=== PATIENT | female | born 2000 | race African-American/Black ===

== ENCOUNTER 2019-12-01 05:18 | Emergency (ER) | payer MEDICAID ==
[~2019-12-01] VITALS: Ht 172.7 cm; Wt 113.4 kg
[2019-12-01 05:46] LABS: ABSOLUTE BASOPHILS 0.1 thou/uL (0.0-0.2); ABSOLUTE EOSINOPHILS 0.2 thou/uL (0.0-0.7); ABSOLUTE LYMPHOCYTES 3.6 thou/uL (0.8-5.3); ABSOLUTE MONOCYTES 0.9 thou/uL (0.0-1.2); ABSOLUTE NEUTROPHILS 5.6 thou/uL (1.6-8.1); BASOPHILS 0.8 %; EOSINOPHILS 2.3 %; HEMATOCRIT 45.5 % (37.0-47.0); HEMOGLOBIN 15.5 gm/dL (12.0-15.0); LYMPHOCYTES 34.4 %; MCHC 34.1 g/dL (28.0-37.0); MONOCYTES 8.7 %; MPV 6.6 fl. (7.2-11.1); NUCLEATED RBCS 0 /100WBC; PLATELET COUNT* 491 thou/uL (150-400); POLYS 53.8 %; RBC 5.55 mil/uL (4.20-5.00); RDW-CV 14.7 % (10.5-14.5); WBC 10.4 thou/uL (4.0-11.0)
[2019-12-01 05:58] LABS: CALCIUM 9.6 mg/dL (8.5-10.1); CREATININE 1.1 mg/dL (0.6-1.3); POTASSIUM 3.1 mmol/L (3.5-5.1)
[2019-12-01] MEDS ORDERED: NORVASC 2.5 MG2.5 M1 PO (06:01)
[2019-12-01] MEDS ORDERED: HYDROCHLOROTHIA25 M2 PO (06:01)
[2019-12-01 06:03] LABS: ALBUMIN 4.4 g/dL (3.4-5.0); TOTAL BILIRUBIN 0.8 mg/dL (<0.1-1.0); TOTAL PROTEIN 9.5 g/dL (6.4-8.2)
[2019-12-01 07:33] LABS: ACETAMINOPHEN < 2 ug/mL (10-30); ALCOHOL < 10 mg/dL (<10); SALICYLATE 3.7 mg/dL (2.8-20.0)
--- NOTE | 2019-12-01 11:20 | EKG ---
[place] [address] ELECTROCARDIOGRAM REPORT Name: SEVEN RAMIREZ Room: [facility]#: [id number] Admission: 12/01/19 Attend Phys: Discharge: Date of : [birth year] Date of Service: 12/01/19 0525 Report #: [id number] THIS REPORT FOR: //name// [facility] ED Test Date: 2019-12-01 Test Time: 05:25:09 Pat Name: SEVEN RENAEERS Department: Room: Gender: [place]: [place] : 2000 Requested By: Omaira Preciado Order Number: [id number] MD: Yasmany Nieto Measurements Intervals [place] Rate: 94 P: 0 MD: 137 QRS: 36 QRSD: 84 T: 30 QT: 344 QTc: 431 Interpretive Statements Sinus rhythm with short pr interval Borderline T abnormalities, inferior leads Baseline wander in lead(s) II,III,aVF No previous ECG available for comparison Electronically Signed On 12-01-2019 11:20:41 CDT by Yasmany Nieto [email or web address] <ELECTRONICALLY SIGNED> By: Yasmany Nieto MD, [facility] 12/01/19 1120 0525 0525 Yasmany Nieto MD, [facility] /EPI
[2019-12-01 14:00] VITALS: BP 140/87
== END 2019-12-01 14:05 | disposition home or self-care (01) ==
LOC: M.ERS 05:18
PROVIDERS: Personal Emergency Response Attendant
DX: R07.89 Other chest pain (principal); R45.851 Suicidal ideations; I16.0 Hypertensive urgency; I10 Essential (primary) hypertension

== ENCOUNTER 2020-03-23 05:20 | Emergency (ER) | payer MEDICAID ==
[~2020-03-23] VITALS: Ht 172.7 cm; Wt 133.8 kg
--- NOTE | ~2020-03-23 | EMS ---
[facility] [address] [place] [address] EMS Patient Care Report Name: SEVEN RAMIREZ Room: [facility]#: [id number] Admission: 03/23/20 Attend Phys: Discharge: 03/23/20 Date of : [birth year] Report #: [id number] THIS REPORT FOR: //name// Report Transmitted: 03/29/2020 08:31 EMS Care Summary [facility] Incident [id number] @ 03/23/2020 04:46 Incident Location [address] [place] [address] Patient SEVEN RAMIREZ Female, 20 Years 2000 Patient Address [address] [place] [address] Patient History Schizoaffective Disorder,Anxiety disorder, unspecified,Obesity, unspecified,Tobacco use, Patient Allergies No known allergies, Chief Complaint Suicidal Ideation Disposition Transported No Lights/[place] Reason Psychiatric Problem/Abnormal Behavior/Suicide Attempt Transported To [facility] Narrative RESPONDED TO 911 CALL FOR STAGE ON SUICIDAL. STAGED. PER [employer] SCENE SECURE. ENTERED. MET WITH 20 YEAR OLD FEMALE PATIENT SEVEN RAMIREZ WHO WAS PINK AND DRY, AMBULATORY, FEARFUL. SEVEN COMPLAINED OF SUICIDAL IDEATION AND HEARING VOICES. SEVEN ENTERED AMBULANCE. IN AMBULANCE GATHERED VITAL SIGNS. SEVEN STATED SHE WOKE UP TO HEARING VOICES, STATED THEY MADE HER WANT TO STAB HERSELF. SEVEN [facility] [address] [place] [address] EMS Patient Care Report Name: SEVEN RAMIREZ Room: [facility]#: [id number] Admission: 03/23/20 Attend Phys: Discharge: 03/23/20 Date of : [birth year] Report #: [id number] STATED SHE HAD MADE PLANS TO STAB HERSELF. KRISTA REQUESTED TRANSPORT TO [facility]. SCOTT ORDERED NON EMERGENT TRANSPORT TO [facility]. MONITORED SEVEN FOR DURATION OF TRANSPORT. CALLED RADIO REPORT. ARRIVED. WHEELED SEVEN TO RN STATION, DIRECTED TO ROOM. GAVE REPORT, TRANSFERRED CARE. Initial Vitals @05:00P: 111,R: 20,BP: 158/P, @05:00GCS: 15, @04:57 Assessments @04:57MENTAL:SKIN:HEENT:LUNG SOUNDS:ABDOMEN:PELVIS//GI:EXTREMITIES:PULSE:NEURO: Impression Mental disorder Timeline 04:44,Call Received 04:44,Dispatch Notified 04:44,Psap Call 04:46,Dispatched 04:46,En Route 04:51,On Scene 04:57,At Patient 04:57,BP: / M,PULSE: ,RR: R,SPO2: Ox,ETCO2: ,BG: ,PAIN: ,GCS: , 05:00,BP: 158/P M,PULSE: 111,RR: 20 R,SPO2: Ox,ETCO2: ,BG: ,PAIN: ,GCS: , 05:00,BP: / M,PULSE: ,RR: R,SPO2: Ox,ETCO2: ,BG: ,PAIN: ,GCS: 15, 05:04,Depart Scene 05:18,At Destination 05:35,Call Closed Disclaimer v1.1 Copyright 2020 [employer] This EMS Care Summary contains data elements from the applicable legal record (which may be displayed differently). It is designed to provide pertinent information for the following purposes: continuity of care, clinical quality, and state data reporting. The complete legal record is available to ED staff and administrators of the receiving hospital in [employer] Patient Tracker. All data is provided "as is."
[~2020-03-23 05:20] MED LIST: HYDROCHLOROTHIA25 M2 PO; NORVASC 2.5 MG2.5 M1 PO
[2020-03-23 05:44] LABS: HEMATOCRIT 41.4 % (37.0-47.0); HEMOGLOBIN 14.1 gm/dL (12.0-15.0); MCH 27.5 pg (26.0-34.0); MCHC 34.1 g/dL (28.0-37.0); MCV 80.6 fL (80.0-100.0); MPV 6.5 fl. (7.2-11.1); RBC 5.13 mil/uL (4.20-5.00); RDW-CV 14.8 % (10.5-14.5); WBC 11.7 thou/uL (4.0-11.0)
[2020-03-23 05:57] LABS: CREATININE 0.9 mg/dL (0.6-1.3); POTASSIUM 3.5 mmol/L (3.5-5.1)
[2020-03-23 06:01] LABS: ALBUMIN 3.4 g/dL (3.4-5.0); TOTAL BILIRUBIN 0.3 mg/dL (<0.1-1.0); TOTAL PROTEIN 7.3 g/dL (6.4-8.2)
[2020-03-23 06:10] LABS: ACETAMINOPHEN < 2 ug/mL (10-30); ALCOHOL < 10 mg/dL (<10)
[2020-03-23 08:50] LABS: URINE BILIRUBIN NEGATIVE (Negative); URINE BLOOD NEGATIVE (Negative); URINE CLARITY SL CLOUDY; URINE COLOR YELLOW; URINE GLUCOSE-RANDOM NEGATIVE (Negative); URINE KETONES NEGATIVE (Negative); URINE LEUKOCYTES NEGATIVE (Negative); URINE NITRITE NEGATIVE (Negative); URINE PROTEIN 1+ (Negative); URINE SPECIFIC GRAVITY 1.025 (1.005-1.030); URINE UROBILINOGEN 0.2 E.U./dl (0.2-1.0)
[2020-03-23 08:55] LABS: SQUAMOUS >10 Many /LPF (0-3)
[2020-03-23 08:56] LABS: BACTERIA >30 Many /HPF (None Seen); CASTS None Seen /LPF (None Seen); CRYSTALS None Seen /LPF (None Seen); MUCUS 0-3 Light strn/LPF (None Seen); URINE RBC 0-2 Rare /HPF (0-2); URINE WBC 0-5 Rare /HPF (0-5)
[2020-03-23 08:58] LABS: AMP/METHAMP Negative (Negative); BARBITURATES Negative (Negative); BENZODIAZEPINES Negative (Negative); COCAINE Negative (Negative); METHADONE Negative (Negative); OPIATES Negative (Negative); PCP Negative (Negative); THC Negative (Negative)
[2020-03-23 10:08] VITALS: BP 115/48
== END 2020-03-23 10:10 | disposition still patient (30) ==
LOC: M.ERS 05:20
PROVIDERS: Personal Emergency Response Attendant
DX: R45.851 Suicidal ideations (principal); F20.9 Schizophrenia, unspecified; F41.9 Anxiety disorder, unspecified; I10 Essential (primary) hypertension; F31.9 Bipolar disorder, unspecified

== ENCOUNTER 2020-08-05 02:55 | Emergency (ER) | payer MEDICAID ==
[~2020-08-05] VITALS: Ht 172.7 cm; Wt 136.1 kg
[2020-08-05] MEDS ORDERED: MYLANTA COAT-C355 ML SW&SWALLOW (03:55)
[2020-08-05] MEDS ORDERED: ACETAMINOPHEN-1 EAC2 PO (03:55)
[2020-08-05 04:08] VITALS: BP 127/71
== END 2020-08-05 04:09 | disposition home or self-care (01) ==
LOC: M.ERS 02:55
DX: J03.90 Acute tonsillitis, unspecified (principal); I10 Essential (primary) hypertension